=== PATIENT | female | born 1960 | race Caucasian/White ===

== ENCOUNTER 2016-11-09 16:01 | Emergency (ER) | payer OTHER ==
[~2016-11-09] VITALS: Ht 165.1 cm; Wt 72.6 kg
[2016-11-09 16:05] VITALS: BP 152/100
[2016-11-09] MEDS ORDERED: Morphine Sulfate 4mg/ml Inj IVP ONE (16:15)
[2016-11-09 16:39] LABS: BASOPHILS % (AUTO) 2.2 % (0.0-2.0); EOSINOPHILS % (AUTO) 1.3 % (0.0-3.0); MEAN CORPUSCULAR VOLUME 109 FL (80-99); MONOCYTES % (AUTO) 10.3 % (1.0-10.0); NEUTROPHILS % (AUTO) 57.2 % (45.0-75.0); PLATELET COUNT 148 K/UL (150-450); RED BLOOD COUNT 3.65 M/UL (4.20-5.40); RED CELL DISTRIBUTION WIDTH 12.8 % (11.6-14.8); WHITE BLOOD COUNT 6.3 K/UL (4.8-10.8)
[2016-11-09 16:52] LABS: ACETAMINOPHEN < 10 ug/mL (10-30); ALANINE AMINOTRANSFERASE 69 U/L (3-33); ALBUMIN/GLOBULIN RATIO 1.8 (1.0-2.7); ALCOHOL < 10 mg/dL; ANION GAP 27 (5-15); ASPARTATE AMINO TRANSFERASE 135 U/L (5-40); CALCIUM 8.3 mg/dL (8.6-10.2); CARBON DIOXIDE 19 mEQ/L (20-30); CHLORIDE 91 mEQ/L (98-107); CREATININE 0.9 mg/dL (0.5-0.9); GLOMERULAR FILTRATION RATE > 60 mL/min (>60); HEMOLYSIS 5; POTASSIUM 3.9 mEQ/L (3.4-4.9); SODIUM 137 mEQ/L (135-145)
[2016-11-09 16:54] LABS: TROPONIN I < 0.30 ng/mL (<=0.30)
[2016-11-09 17:03] LABS: CKMB < 1.5 ng/mL (< 3.8)
--- NOTE | 2016-11-09 17:23 | Diagnostic Imaging Report ---
Indications: Pain, status post fall Technique: Spiral acquisitions obtained through the brain. Angled axial and coronal 5 x 5 mm slices were reconstructed. Total dose length product 1390 mGycm. CTDI vol(s) 70 mGy Comparison: None Findings: There is a sizable parietal midline scalp soft tissue contusion. A small amount of soft tissue gas indicates a component of laceration, as well. No underlying calvarial fracture is demonstrated. No acute intracranial hemorrhage or edema, mass effect or midline shift. Normal size ventricles and extra axial CSF spaces. Normal garcia-white differentiation. Visualized orbits and sinuses are unremarkable. Impression: No acute intracranial bleed or mass effect Evidence of high parietal scalp soft tissue injury The CT scanner at [facility] is accredited by the [employer] and the scans are performed using protocols designed to limit radiation exposure to as low as reasonably achievable to attain images of sufficient resolution adequate for diagnostic evaluation.
[2016-11-09 17:28] VITALS: BP 146/96
[2016-11-09] MEDS ORDERED: TdaP Vaccine 0.5ml Syr IM ONE (18:00)
[2016-11-09] MEDS ORDERED: IBUPROFEN600 MG ORAL (18:04)
[2016-11-09] MEDS ORDERED: ACETAMINOPHEN-1 EAC1 ORAL (18:04)
[2016-11-09] MEDS ORDERED: OFLOXACIN5 ML RIGHT EAR (18:04)
[2016-11-09 18:18] VITALS: BP 146/96
[2016-11-09] MEDS ORDERED: LIBRIUM10 MG ORAL (18:20)
--- NOTE | 2016-11-09 18:59 | Emergency Room Report ---
History of Present Illness General Chief Complaint: Syncope Source: Patient Present Illness HPI 56-year-old female presents to ED status post syncopal episode. Patient states she was at the grocery store today patient states she felt dizzy and then passed out. Patient woke up on the ground. Friend witnessed episode. States that there was blood coming from the right ear. Tetanus is not up-to-date. Friend states that patient likely passed out because she is trying to cut out alcohol. Patient has history of chronic alcohol abuse. Denies any drug use. Upon arrival patient is complaining of headache, throbbing, 9/10 to the back of the head. Complaining of neck pain. Denies any photophobia, blurry vision. Denies nausea or vomiting. No other aggravating or relieving factors. Denies any other associated symptoms Allergies: Coded Allergies: ERYTHROMYCIN BASE (Verified Allergy, Intermediate, 11/09/16) Patient History Past Medical History: none Past Surgical History: none Pertinent Family History: none Social History: Reports: alcohol use, Denies: drug use, smoking Now: No Immunizations: UTD Reviewed Nursing Documentation: PMH: Agreed, PSxH: Agreed Nursing Documentation-PMH Hx Cardiac Problems: No Hx Hypertension: No Hx Pacemaker: No Hx Asthma: No Hx COPD: No Hx Diabetes: No Hx Cancer: No Hx Gastrointestinal Problems: No Hx Dialysis: No History Of Psychiatric Problem: No Hx Neurological Problems: Yes - thyroid Hx Cerebrovascular Accident: No Hx Seizures: No Review of Systems All Other Systems: negative except mentioned in HPI Physical Exam Vital Signs Date Time Temp Pulse Resp B/P Pulse Ox O2 Delivery O2 Flow Rate FiO2 11/09/16 16:00 97.9 90 16 152/100 98 Room Air Sp02 EP Interpretation: reviewed, normal General Appearance: no apparent distress, alert, GCS 15, non-toxic Head: normocephalic, other - posterior scalp pain Eyes: bilateral eye PERRL, bilateral eye normal inspection ENT: other - blood in R ear canal. TM intact. macerated R ear canal Neck: normal inspection, tender midline Respiratory: chest non-tender, lungs clear, normal breath sounds, speaking full sentences Cardiovascular #1: regular rate, rhythm, no edema Gastrointestinal: normal bowel sounds, non tender, soft, non-distended, no guarding, no rebound Rectal: deferred Genitourinary: no CVA tenderness Musculoskeletal: normal inspection Neurologic: alert, oriented x3, responsive, motor strength/tone normal, sensory intact, speech normal Psychiatric: normal inspection Skin: normal inspection Lymphatic: normal inspection Medical Decision Making Diagnostic Impression: Primary Impression: Injury of ear canal Qualified Codes: S09.91XA - Unspecified injury of ear, initial encounter Additional Impressions: Concussion Qualified Codes: S06.0X9A - Concussion with loss of consciousness of unspecified duration, initial encounter Syncope Qualified Codes: R55 - Syncope and collapse Alcohol withdrawal Qualified Codes: F10.230 - Alcohol dependence with withdrawal, uncomplicated ER Course Hospital Course 56-year-old female presents ED s/p syncopal episode. bleeding from R ear. cutting down on alcohol Differential diagnoses include: arrythmia, dehydration, intracranial bleed, ruptured TM, ETOH withdrawal Clinical course Patient placed on stretcher. on compliance monitor. After initial history and physical I ordered labs, EKG, tetanus, IVFs, CT Brain, CT Cspine labs reviewed- no leukocytosis, Hb/Hct stable, electrolytes ok, troponins negative, Utox + BZs CT Brain - unremarkable CT Cspine - no acute process EKG - NSR, no ischemic changes Clinically patient likely experience episode due to her alcohol withdrawal. Friend states that patient has had trouble over the years abstaining from alcohol. Patient required irrigation of the right ear to effectively rule out tympanic membrane rupture. While there is no TM rupture there is maceration of the floor of the right ear canal, likely the source of the bleeding. Not amenable to suturing. We will provide pressure using gauze. Patient will be discharged with antibiotics and recommend ENT followup I. I feel this is a highly complex case requiring extensive working including EKG/Rhythm strip, Xray/CT/US, Blood/urine lab work, repeat exams while in ED, and administration of strong opiates/narcotics for pain control, admission to hospital or close patient follow up. Diagnosis - injury of ear canal, concussion, syncope, alcohol withdrawal Stable and discharged to home with Rx Ofloxacin, Motrin, [place], librium. Followup with ENT. Return to ED if symptoms recur or worsen Labs Test 11/09/16 16:15 White Blood Count 6.3 K/UL (4.8-10.8) Red Blood Count 3.65 M/UL (4.20-5.40) Hemoglobin 13.5 G/DL (12.0-16.0) Hematocrit 39.8 % (37.0-47.0) Mean Corpuscular Volume 109 FL (80-99) Mean Corpuscular Hemoglobin 37.0 PG (27.0-31.0) Mean Corpuscular Hemoglobin Concent 34.0 G/DL (32.0-36.0) Red Cell Distribution Width 12.8 % (11.6-14.8) Platelet Count 148 K/UL (150-450) Mean Platelet Volume 8.0 FL (6.5-10.1) Neutrophils (%) (Auto) 57.2 % (45.0-75.0) Lymphocytes (%) (Auto) 29.0 % (20.0-45.0) Monocytes (%) (Auto) 10.3 % (1.0-10.0) Eosinophils (%) (Auto) 1.3 % (0.0-3.0) Basophils (%) (Auto) 2.2 % (0.0-2.0) Sodium Level 137 mEQ/L (135-145) Potassium Level 3.9 mEQ/L (3.4-4.9) Chloride Level 91 mEQ/L (98-107) Carbon Dioxide Level 19 mEQ/L (20-30) Anion Gap 27 (5-15) Blood Urea Nitrogen 17 mg/dL (7-23) Creatinine 0.9 mg/dL (0.5-0.9) Estimat Glomerular Filtration Rate > 60 mL/min (>60) Glucose Level 125 mg/dL (74-106) Calcium Level 8.3 mg/dL (8.6-10.2) Total Bilirubin 0.7 mg/dL (0.0-1.2) Aspartate Amino Transf (AST/SGOT) 135 U/L (5-40) Alanine Aminotransferase (ALT/SGPT) 69 U/L (3-33) Alkaline Phosphatase 68 U/L (35-104) Creatine Kinase MB < 1.5 ng/mL (< 3.8) Troponin I < 0.30 ng/mL (<=0.30) Total Protein 7.0 g/dL (6.6-8.7) Albumin 4.5 g/dL (3.5-5.2) Globulin 2.5 g/dL Albumin/Globulin Ratio 1.8 (1.0-2.7) Salicylates Level < 1 mg/dL (10-30) Urine Opiates Screen Negative (NEGATIVE) Acetaminophen Level < 10 ug/mL (10-30) Urine Barbiturates Screen Negative (NEGATIVE) Phencyclidine (PCP) Screen Negative (NEGATIVE) Urine Amphetamines Screen Negative (NEGATIVE) Urine Benzodiazepines Screen Positive (NEGATIVE) Urine Cocaine Screen Negative (NEGATIVE) Urine Marijuana (THC) Screen Negative (NEGATIVE) Serum Alcohol < 10 mg/dL EKG Diagnostic Results Rate: normal Rhythm: NSR ST Segments: no acute changes ASA given to the pt in ED: No Rhythm Strip Diag. Results EP Interpretation: yes Rhythm: NSR, no PVC's, no ectopy CT/MRI/US Diagnostic Results CT/MRI/US Diagnostic Results : Imaging Test Ordered: CT Head, CT Cspine Impression CT head - scalp hematoma, no intracranial injury, no skull fx CT cspine - no acute process Last Vital Signs Date Time Temp Pulse Resp B/P Pulse Ox O2 Delivery O2 Flow Rate FiO2 11/09/16 18:18 97.9 72 13 146/96 96 Room Air Status: improved Disposition: HOME, SELF-CARE Condition: Stable Scripts Chlordiazepoxide Hcl* (LIBRIUM*) 10 Mg Capsule 10 MG ORAL THREE TIMES A DAY, #15 CAP 0 Refills Prov: DORIAN JIMENEZ M.D. 11/09/16 Acetaminophen With Codeine (T#3) (TYLENOL #3 TAB*) Y Tab 1 TAB ORAL Q8H Y for For Pain, #20 TAB Prov: DORIAN JIMENEZ M.D. 11/09/16 Ibuprofen* (MOTRIN*) 600 Mg Tablet 600 MG ORAL Q8H Y for For Pain, #30 TAB 0 Refills Prov: DORIAN JIMENEZ M.D. 11/09/16 Ofloxacin (OFLOXACIN) 5 Ml Drops 10 DROP RIGHT EAR BID, #5 ML Prov: DORIAN JIMENEZ M.D. 11/09/16 Referrals: Vicente Falcon MD,MARY MAHONEY M.D. Patient Instructions: Tympanic Membrane Perforation-SportsMed, Concussion, Adult, [id number] Additional Instructions: follow up with ENT DORIAN JIMENEZ M.D. Nov 09, 2016 18:59
--- NOTE | 2016-11-10 08:35 | Diagnostic Imaging Report ---
Indication: Pain, status post fall Technique: Spiral acquisitions obtained through the cervical spine. No IV contrast utilized. Multiplanar reconstructions were generated. Total dose length product 438 mGycm. CTDIvol(s) 21 mGy Comparison: None Findings: No acute fractures. No dislocations. Bony alignment is normal. Vertebral body heights are preserved. There is degenerative disc narrowing at C5-6 and C6-7. At C3-4, there is mild left neural foraminal stenosis. At C4-5, there is minimal left neural foraminal stenosis. At C5-6, there is moderate right, moderate to severe left neural foraminal stenosis. C6-7, there is mild bilateral neural foraminal stenosis. No significant disc bulge or spinal stenosis seen at any level. The extraspinal soft tissues are unremarkable. Multiple foreign bodies are seen bilaterally within the neck, appear to be surgical clips. Impression: No acute bony trauma Mild degenerative changes, as delineated on a level bilevel basis above Evidence of prior bilateral neck surgery-correlate with clinical history The CT scanner at [facility] is accredited by the [employer] and the scans are performed using protocols designed to limit radiation exposure to as low as reasonably achievable to attain images of sufficient resolution adequate for diagnostic evaluation.
--- NOTE | 2016-11-10 14:47 | Cardiology Report ---
APPROVED REPORT EKG Measurement Heart [id number] Sinus rhythm with occasional premature ventricular complexes Low voltage QRS Nonspecific ST and T wave abnormality Abnormal ECG
== END 2016-11-09 18:19 | disposition home or self-care (01) ==
LOC: EDBD 16:01 → EMR 16:21
DX: S09.8XXA Other specified injuries of head, initial encounter (principal); S06.0X0A Concussion without loss of consciousness, initial encounter; W19.XXXA Unspecified fall, initial encounter; Y92.89 Other specified places as the place of occurrence of the external cause; R55 Syncope and collapse; F10.239 Alcohol dependence with withdrawal, unspecified; Z23 Encounter for immunization; M48.02 Spinal stenosis, cervical region
CPT/HCPCS: 36415; 70450; 72125; 80053; 80300; 80329; 82553; 84484; 85025; 90471; 90715; 93005; 96360; 96374; 99284; J2270

== ENCOUNTER 2018-10-06 14:37 | Emergency (ER) | payer OTHER ==
[~2018-10-06] VITALS: Ht 165.1 cm; Wt 86.2 kg
[~2018-10-06 14:37] MED LIST: ACETAMINOPHEN-1 EAC1 ORAL; IBUPROFEN600 MG ORAL; LIBRIUM10 MG ORAL; OFLOXACIN5 ML RIGHT EAR
[2018-10-06] MEDS ORDERED: Acetaminophen 500mg (ES) tab ORAL ONE (15:00)
[2018-10-06 15:12] VITALS: BP 133/87
--- NOTE | 2018-10-06 15:31 | Emergency Room Report ---
History of Present Illness General Chief Complaint: Constipation Present Illness HPI 58-year-old female patient presents the ER complaining of constipation for the past several days. Reports able to pass flatus. Denies diarrhea. Denies vomiting. Reports attempted to use enema at home however "had to pull it out". Patient brought to the ER by friend, patient appears intoxicated currently, states that she had several drinks of vodka earlier today and has been having " a shot every 2 hours" for the past few days. Reports possible head injury, denies loss consciousness. Denies history of stroke. Denies fever, chest pain , shortness of breath. Denies dysuria, hematuria. Also complaining of right ankle pain, states pain is been present for a few months, reports currently using a bandage for pain symptoms. Reports continued pain since initial injury months ago, states drinking alcohol for pain. Allergies: Coded Allergies: ERYTHROMYCIN BASE (Verified Allergy, Intermediate, 11/09/16) Patient History Past Medical History: see triage record Last Menstrual Period: none Now: No Reviewed Nursing Documentation: PMH: Agreed; PSxH: Agreed Nursing Documentation-PMH Hx Cardiac Problems: No Hx Hypertension: No Hx Pacemaker: No Hx Asthma: No Hx COPD: No Hx Diabetes: No Hx Cancer: No Hx Gastrointestinal Problems: No Hx Dialysis: No Hx Neurological Problems: Yes - thyroid Hx Cerebrovascular Accident: No Hx Seizures: No Review of Systems All Other Systems: negative except mentioned in HPI Physical Exam Vital Signs Date Time Temp Pulse Resp B/P (MAP) Pulse Ox O2 Delivery O2 Flow Rate FiO2 10/06/18 15:04 98.2 120 15 133/87 95 Room Air Sp02 EP Interpretation: reviewed, normal General Appearance: well appearing, no apparent distress, alert, GCS 15, non- toxic Head: normocephalic, atraumatic Eyes: bilateral eye normal inspection, bilateral eye PERRL ENT: hearing grossly normal, normal pharynx, no angioedema, normal voice, uvula midline, moist mucus membranes Neck: full range of motion Respiratory: lungs clear, normal breath sounds, no rhonchi, no respiratory distress, no accessory muscle use, no wheezing, speaking full sentences Cardiovascular #1: regular rate, rhythm, no edema Gastrointestinal: normal bowel sounds, non tender, soft, no mass, non-distended , no guarding, no rebound Musculoskeletal: back normal, digits/nails normal, gait/station normal, normal range of motion, non-tender, other - NVI, no TTP over bilateral malleoli, tender - dorsum of right foot Neurologic: alert, oriented x3, responsive, motor strength/tone normal, sensory intact Skin: no rash Medical Decision Making PA Attestation Dr. Emerson is my supervising Physician whom patient management has been discussed with. Diagnostic Impression: Primary Impression: Constipation Additional Impressions: Alcohol intoxication Head injury Foot injury ER Course Pt. presents to the ED c/o constipation, bloating, foot pain, alcohol intoxication, head trauma. Ddx considered but are not limited to fracture, sprain, strain, contusion, dislocation, constipation, SBO, alcohol intoxication, ICH, skull fracture, GERD , acid reflux. No abdominal tenderness to palpation, abdomen soft, normal bowel sounds, able to pass flatus, no blood in stool, low suspicion for SBO. No erythema, no warmth to touch, no fever, nontoxic appearing, low suspicion for septic joint. Soft compartments, no pulselessness, no pallor, no paresthesias, low suspicion for compartment syndrome at this time. Vital signs: are WNL, pt. is afebrile Ordered X-ray and pain medication. ER COURSE CT head shows Discuss results with the patient. Provided patient with copy of results. Instructed patient to followup with PCP and discuss results of report with patient, discuss need for further treatment and referral. Patient able to ambulate in the ER and apparently without difficulty. Patient able to tolerate p.o. fluids. An X-ray of the right foot shows no acute fracture, possible old avulsion fracture noted distal to calcaneus per the preliminary reading. Will place patient into a posterior leg splint and provided crutches. Advised patient to follow-up with primary care provider and get referral to ortho for repeat imaging in 7-10 days. Provide patient copy of x-ray, take to primary care provider to discuss further treatment and referral as needed. posterior short leg splint was applied to the right foot and was checked afterwards by me showing good alignment and support with distal neurovascular functioning intact. Crutches provided. Take Tylenol for pain symptoms. Patient instructed on RICE method: rest, ice, compression, elevation. Patient instructed on rest, ice and heat. Patient instructed to be WBAT Contact information for orthopedic urgent care provided, follow-up with urgent care if unable to followup with primary care provider and get referral to clinical nurse specialist. Followup with primary care provider. Discuss referral to ortho/pain management/ PT as needed. Discuss further imaging with MRI/CT as needed. Patient observed ambulating in the ER independently without difficulty, believe patient is okay to be discharged home. Tolerating fluids p.o. Alert and oriented, appears less intoxicated. Discharged to care of friend who will take patient home. Do not drink alcohol in excess. Provide patient with contact information for drug and alcohol rehab. ER precautions given. Patient seen and evaluated by Dr. Emerson, agrees with assessment and treatment plan. DISCHARGE: -Rx provided for Lactulose Rx provided for Pepcid At this time pt. is stable for d/c to home. Patient is resting comfortably, in no acute distress, nontoxic appearing, talking without difficulty. Will provide printed patient care instructions, and any necessary prescriptions. Patient instructed to follow with primary care provider in 3 - 5 days and to request further follow-up as needed. Care plan and follow up instructions have been discussed with the patient prior to discharge. Take medications as directed. Patient questions asked and answered. Patient reports understanding and agreement to treatment plan. ER precautions given, patient instructed to return to ER immediately for any new or worsening of symptoms. - Please note that this Emergency Department Report was dictated using SecondHomemarriage and family counselor technology software, occasionally this can lead to erroneous entry secondary to interpretation by the dictation equipment. Other X-Ray Diagnostic Results Other X-Ray Diagnostic Results : X-Ray ordered: Right foot # of Views/Limited Vs Complete: 3 View Indication: Pain EP Interpretation: Yes PA Xray: Interpretation reviewed, by supervising MD, and agrees with findings. Interpretation: no dislocation, no soft tissue swelling, no fractures, other - Old avulsion fracture Impression: No acute disease FUNMI Scribe Text Jaquan Easton PA-C CT/MRI/US Diagnostic Results CT/MRI/US Diagnostic Results : Imaging Test Ordered: CT head Impression No acute intracranial findings. No evidence of acute intracranial hemorrhage, mass effect, or midline shift. Mild mucosal thickening in bilateral maxillary sinuses. Remaining visualized paranasal sinuses and mastoid air cells are clear. No sinus air-fluid levels. Last Vital Signs Date Time Temp Pulse Resp B/P (MAP) Pulse Ox O2 Delivery O2 Flow Rate FiO2 10/06/18 15:12 98.2 80 15 133/87 95 Room Air Status: improved Disposition: HOME, SELF-CARE Condition: Stable Scripts Famotidine (PEPCID AC) 20 Mg Tablet 20 MG PO DAILY, #30 TAB Prov: Charles Easton 10/06/18 Lactulose (LACTULOSE*) 20 Gm/30 Ml Solution 30 ML ORAL BID, #150 ML 0 Refills Prov: Charles Easton 10/06/18 Referrals: NIALL [place],REFERRING (PCP) Patient Instructions: Alcohol Intoxication, [id number], Constipation, Adult, Head Injury, Adult, [id number], Metatarsal Fracture Additional Instructions: Patient instructed to follow up with primary care provider and discuss further referral to orthopedics/physical therapy/pain management as needed. If unable to followup with PCP, followup with orthopedic urgent care in 5-7 days , call to schedule appointment. Drink plenty of fluids. High-fiber diet. Avoid excessive alcohol intake. Patient instructed on RICE method: rest, ice, compression, elevation. Patient instructed to WBAT. Take medications as directed. Patient questions asked and answered. ER precautions given, patient instructed to return to ER immediately for any new or worsening of symptoms. [facility] [address] [facility], [id number] [email or web address] Charles Easton Oct 06, 2018 15:31
--- NOTE | 2018-10-06 16:00 | NUR ---
ED Nurse Note:pt. came with right foot pain and ETOH, pt. had CT scan done pain meds given
[2018-10-06 16:08] VITALS: BP 110/72
[2018-10-06 16:11] VITALS: BP 110/72
[2018-10-06] MEDS ORDERED: LACTULOSE20 GM/301 ORAL (17:55)
[2018-10-06] MEDS ORDERED: PEPCID AC20 M2 PO (17:55)
--- NOTE | 2018-10-06 18:03 | NUR ---
ED Nurse Note:splint was placed on right foot by psychiatric technician assistant and cratchies provided with imaging disc pt. was cleared for d/c by ER MD ,he received d/c instructions with prescriptions, verbalized understanding and left ER with steady gait and all personal belongings, ID bend removed
--- NOTE | 2018-10-07 11:05 | Diagnostic Imaging Report ---
Indication: Headache Technique: Contiguous 5 mm thick transaxial imaging of the head obtained in a Siemens Sensation [address] scanner. Soft tissue and bone windows generated. Automatic Exposure Control was utilized. Total Dose length Product (DLP): 1360.[address] Dose Index Volume (CTDIvol): 70.38 mGy Comparison: 11/09/2016 Findings: There is mild prominence of the ventricles, basal cisterns, and cerebral sulci consistent with atrophy. Mild, nonspecific, white matter hypoattenuation is noted throughout the brain consistent with chronic small vessel disease. There is no midline shift, edema, acute hemorrhage, mass effect, or abnormal extra-axial fluid collections. Bones and extra osseous soft tissues are unremarkable. Impression: No acute intracranial bleed, mass effect or edema. Mild atrophy of the brain. Nonspecific white matter hypoattenuation probably due to chronic small vessel disease. The CT scanner at [facility] is accredited by the [employer] and the scans are performed using dose optimization techniques as appropriate to a performed exam including Automatic Exposure control.
--- NOTE | 2018-10-07 12:39 | Diagnostic Imaging Report ---
Indication: Foot Pain Comparison: None Findings: 3 views of the right foot were obtained. No definite fracture is identified. There are moderate degenerative changes involving the midfoot and mild arthrosis several of the metatarsophalangeal and are phalangeal joints. Soft tissue swelling is noted. IMPRESSION: No acute injury
== END 2018-10-06 18:05 | disposition home or self-care (01) ==
LOC: EMR 14:59
DX: K59.00 Constipation, unspecified (principal); F10.129 Alcohol abuse with intoxication, unspecified; S09.90XA Unspecified injury of head, initial encounter; S99.921A Unspecified injury of right foot, initial encounter; X58.XXXA Exposure to other specified factors, initial encounter; Y92.89 Other specified places as the place of occurrence of the external cause; Z88.1 Allergy status to other antibiotic agents; G31.9 Degenerative disease of nervous system, unspecified
CPT/HCPCS: 29515; 70450; 99284